=== PATIENT | female | born 1955 | race Caucasian/White ===

== ENCOUNTER 2017-06-13 12:14 | Emergency (ER) | payer BC ==
[2017-06-13 12:46] LABS: #Eosinphils 0.2 thou/uL (0.0-0.7); #Lymphocytes 0.9 thou/uL (1.20-3.40); #Monocytes 0.5 thou/uL (0.11-0.59); #Neutrophils 7.1 thou/uL (1.40-6.50); %Basophils 0.4 % (0.0-1.0); %Eosinophils 2.1 % (0.0-10.0); %Lymphocytes 10.7 % (21.0-51.0); %Monocytes 5.2 % (0.0-10.0); Hematocrit 45.9 % (36.0-47.0); Mean Platelet Volume 7.7 fL (7.4-10.4); Red Blood Cell (RBC) Count 5.51 mill/uL (4.20-5.40); White Blood Cell (WBC) Count 8.6 thou/uL (4.8-10.8)
[2017-06-13 13:04] LABS: ALT (SGPT) 78 U/L (8-55); AST (SGOT) 44 U/L (5-34); Alkaline Phosphatase 102 U/L (40-150); Anion Gap 14 mmol/L (10-20); BUN (Urea Nitrogen) 20 mg/dL (9.8-20.1); Bilirubin, Total 0.4 mg/dL (0.2-1.2); Calc. Creatinine Clearance 0 mL/min (70-130); Calcium 8.9 mg/dL (7.8-10.44); Carbon Dioxide 28 mmol/L (22-29); Chloride 103 mmol/L (98-107); Estimated GFR-MDRD 73; Globulin 3.4 g/dL (2.4-3.5); Lipase 8 U/L (8-78); Protein, Total 7.5 g/dL (6.0-8.3)
[2017-06-13 13:08] LABS: Bilirubin Negative (Negative); Blood, Urine Negative (Negative); Glucose, Urine (Dipstick) Negative (Negative); Ketone, Urine Negative (Negative); Nitrite Negative (Negative); Protein, Urine (Dipstick) Negative (Neg-Trace)
[2017-06-13] MEDS ORDERED: Ondansetron ODT 4 MG TAB ONE (14:49)
[2017-06-13] MEDS ORDERED: Ondansetron HCl/PF 4 MG/2 ML Vial ONE (14:52)
[2017-06-13] MEDS ORDERED: Lidocaine Viscous Sol 2% 15 ml UD Cup ONE (15:22)
[2017-06-13] MEDS ORDERED: Mag-Al 1200 mg/1200 mg/30 ML UDCUP ONE (15:22)
--- NOTE | 2017-06-13 16:18 | CT ---
CT ABDOMEN AND PELVIS WITH CONTRAST: 06/13/17 HISTORY: Generalized abdominal pain. COMPARISON: CT abdomen and pelvis 2012. FINDINGS: The lung bases are clear. No pericardial effusion. Prior cholecystectomy. There appears to be hepatic steatosis. The spleen, adrenal glands are unremar kable. No dilated loops of large or small bowel. 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 This can be seen in the 2012 examination also. No dilated loops of large or small bowel. The liver is enlarged. Mild diverticular disease sigmoid c olon without active inflammation. Posterior spinal fusion hardware at L5-S1. IMPRESSION: 1. Abnormal thickening of the origin of the appendix which is dilated although filled contrast. This is not concerning for acute appendicitis and would be more concerning for a mucosal based mass . Colonoscopic evaluation is recommended. 2. Hepatic steatosis with hepatomegaly. Code T
== END 2017-06-13 17:05 | disposition home or self-care (01) ==
LOC: ERS 12:14
DX: R10.9 Unspecified abdominal pain (principal); F41.9 Anxiety disorder, unspecified
CPT/HCPCS: 36415; 74177; 80053; 81003; 83690; 85025; 96374; J2405; Q0162

== ENCOUNTER 2019-04-11 10:03 | Outpatient (CLI) | payer BC ==
--- NOTE | 2019-04-11 11:09 | MRI ---
MRI Cervical spine without contrast: HISTORY: Cervical radiculopathy. Patient complains of left-sided arm and leg numbness for 2 months. COMPARISON: None FINDINGS: There are findings likely due to a yareli-cisterna magna. Axial imaging was not obtained through the [facility] for further evaluation. The craniocervical junction is unremarkable. No significant cord signal abnormality. Paravertebral soft tissues have a normal appearance and normal signal intensity. C1-2:No significant stenosis. C2-3: There is a small central disc protrusion which effaces the ventral subarachnoid space. Neural f oramina are patent. C3-4: There is loss of intervertebral disc height. A disc osteophyte complex is present. Mild facet d egenerative changes are present. Mild narrowing of the central spinal canal is present. The left neural foramen is patent, but there is mild right-sided neural foraminal narrowing. There is suggesti on of trace retrolisthesis of C3 on C4. C4-5: There is no disc bulge or disc herniation. The central spinal canal and neural foramina are pat ent. C5-6: There is loss of intervertebral disc height with mild endplate degenerative changes. Broad-base d disc osteophyte complex is present. There are mild facet degenerative changes noted. Mild narrowing of the central spinal canal is present with slight flattening of the anterior aspect of the spinal cord. Mild left and [id number] right-sided neural foraminal narrowing is present. C6-7: A mild disc osteophyte complex is present slightly effacing the ventral subarachnoid space. The neural foramina are patent. Tiny foci of increased T2-weighted signal intensity are seen in each neural foramen probably related to dilated nerve root sleeves. C7-T1: There is no disc bulge or disc herniation. The central spinal canal and neural foramina are pa tent. IMPRESSION: Mild degenerative changes in the cervical spine. No high-grade central canal stenosis or neural burt inal narrowing is present.
== END 2019-04-11 10:04 | disposition home or self-care (01) ==
LOC: MRI 10:03
PROVIDERS: ATTEND Neurological Surgery
DX: M47.22 Other spondylosis with radiculopathy, cervical region (principal)
CPT/HCPCS: 72141

== ENCOUNTER 2019-12-27 08:11 | Outpatient (CLI) | payer BC ==
--- NOTE | 2019-12-27 10:37 | RAD ---
CERVICAL SPINE 4 VIEWS: HISTORY: Cervical radiculopathy, numbness in face and both hands. FINDINGS: Multilevel disk-osteophytosis changes are noted. Minimal retrolisthesis of C3 on C4 and C5 on C6 wit h associated disk space narrowing. No prevertebral soft tissue swelling. No acute fracture or dislo cation of the visualized C-spine. IMPRESSION: Mild retrolisthesis of C3 on C4 and C5 on C6. No abnormal translation between flexion and extension. POS: [facility]
== END 2019-12-27 08:12 | disposition home or self-care (01) ==
LOC: BICRAD 08:11
PROVIDERS: ATTEND Neurological Surgery
DX: M54.12 Radiculopathy, cervical region (principal); M43.12 Spondylolisthesis, cervical region
CPT/HCPCS: 72050

== ENCOUNTER 2020-01-03 09:28 | Outpatient (CLI) | payer BC ==
--- NOTE | 2020-01-03 11:23 | RAD ---
LUMBAR SPINE 4 VIEWS:: Date: 01/03/2020 HISTORY: Spondylosis of lumbar region. COMPARISON: Lumbar spine radiograph from 2017. FINDINGS: Posterior spinal fusion hardware with transpedicular screws and interconnecting rods L5-S1. Similar a ppearance of the hardware from the 2017 exam. No evidence for hardware complication. No acute superim posed fracture or malalignment. Minimal narrowing of the L4-5 disc space. Mild narrowing of L3-4 disc space. Mild narrowing of L2-L4 interspinous space. Mild vascular calcifications. IMPRESSION: Intact surgical hardware. No acute osseous abnormality. POS: HOME
== END 2020-01-03 09:29 | disposition home or self-care (01) ==
LOC: BICRAD 09:28
PROVIDERS: ATTEND Neurological Surgery
DX: M47.816 Spondylosis without myelopathy or radiculopathy, lumbar region (principal); Z98.1 Arthrodesis status
CPT/HCPCS: 72110

== ENCOUNTER 2021-12-02 07:58 | Outpatient (CLI) | payer MEDICARE, OTHER | END 2021-12-02 07:59 | disposition home or self-care (01) | LOC: TBSIIMAG 07:58 | PROVIDERS: ATTEND Nurse Practitioner Family | DX: M47.27 Other spondylosis with radiculopathy, lumbosacral region (principal); M47.26 Other spondylosis with radiculopathy, lumbar region; Z98.890 Other specified postprocedural states | CPT/HCPCS: 72148 ==

== ENCOUNTER 2023-04-17 07:35 | Outpatient (CLI) | payer MEDICARE, OTHER ==
[2023-04-17] MEDS ORDERED: Sodium Chloride 0.9% 1,000 ML BAG ONE (08:18)
[2023-04-17] MEDS ORDERED: Lidocaine 1% PF 5 ML VIAL ONE (08:18)
[2023-04-17] MEDS ORDERED: Iopamidol 300 61% 100 ML VIAL FS ONE (08:18)
[2023-04-17] MEDS ORDERED: EPINEPHrine 1 MG/ML AMP ONE (08:18)
[2023-04-17] MEDS ORDERED: Iopamidol 370 76% 100 ML VIAL ONE (09:01)
== END 2023-04-17 07:36 | disposition home or self-care (01) ==
LOC: RAD 07:35
PROVIDERS: ATTEND Orthopaedic Surgery
DX: M24.021 Loose body in right elbow (principal); M19.021 Primary osteoarthritis, right elbow; M94.8X8 Other specified disorders of cartilage, other site
CPT/HCPCS: 24220; J0171; J7050; Q9967

== ENCOUNTER 2023-07-03 08:17 | Outpatient (CLI) | payer MEDICARE, OTHER ==
[2023-07-03 09:14] LABS: #Basophils 0.1 10x3/uL (0.0-0.2); #Eosinphils 0.3 10x3/uL (0.0-0.5); #Monocytes 0.4 10x3/uL (0.0-1.1); #Neutrophils 4.2 10x3/uL (1.5-8.4); %Basophils 0.9 % (0.0-2.0); %Eosinophils 4.4 % (0.0-6.0); %Lymphocytes 22.8 % (18.0-47.0); %Monocytes 5.8 % (0.0-10.0); %Neutrophils 65.8 % (40.0-75.0); Hematocrit 41.9 % (34.9-44.5); Hemoglobin 13.1 g/dL (12.0-15.5); Mean Corpuscular HGB CONC 31.3 g/dL (32.0-36.0); Mean Corpuscular Hemoglobin 25.8 pg (27.0-33.0); Mean Corpuscular Volume 82.5 fl (81.6-98.3); Platelet Count 224 10x3/uL (150-450); RBC Distribution Width 14.2 % (11.5-14.5); Red Blood Cell (RBC) Count 5.08 10x6/uL (3.90-5.03); White Blood Cell (WBC) Count 6.4 10x3/uL (3.5-10.5)
[2023-07-03 09:41] LABS: PTT 32.2 sec (22.0-33.0); Prothrombin Time 10.5 sec (9.5-12.1)
[2023-07-03 09:42] LABS: ALT (SGPT) 35 U/L (8-55); AST (SGOT) 18 U/L (5-34); Albumin 4.2 g/dL (3.4-4.8); Alkaline Phosphatase 69 U/L (40-110); Anion Gap 14 mmol/L (10-20); BUN (Urea Nitrogen) 16 mg/dL (9.8-20.1); Bilirubin, Direct 0.1 mg/dL (0.1-0.3); Bilirubin, Total 0.3 mg/dL (0.2-1.2); Calc. Creatinine Clearance 0 mL/min (70-130); Carbon Dioxide 26 mmol/L (23-31); Chloride 105 mmol/L (98-107); Estimated GFR 81; Glucose 147 mg/dL (80-115); Potassium 4.5 mmol/L (3.5-5.1); Protein, Total 6.8 g/dL (5.8-8.1); Sodium 140 mmol/L (136-145)
== END 2023-07-03 08:18 | disposition home or self-care (01) ==
LOC: LABBT 08:17
PROVIDERS: ATTEND Orthopaedic Surgery
DX: Z01.818 Encounter for other preprocedural examination (principal); M24.021 Loose body in right elbow
CPT/HCPCS: 80048; 80076; 85025; 85610; 85730; 93005; 93010

== ENCOUNTER 2023-07-06 09:54 | Day surgery (SDC) | payer MEDICARE, OTHER ==
[2023-07-03 08:49] VITALS: BMI 28.3
[2023-07-06] MEDS ORDERED: Midazolam HCl 2 mg/2 ml Vial ONE (12:13)
[2023-07-06] MEDS ORDERED: CEFAZOLIN 2 GM VIAL ONE (12:21)
[2023-07-06] MEDS ORDERED: Sodium Chloride 0.9% 100 ML ONE (12:21)
[2023-07-06] MEDS ORDERED: Lidocaine 1% (PF) 30 ML VIAL ONE (12:54)
[2023-07-06] MEDS ORDERED: EPINEPHrine 1 MG/ML VIAL ONE (12:54)
[2023-07-06] MEDS ORDERED: PROPOFOL 20 ML ONE (13:00)
[2023-07-06] MEDS ORDERED: Rocuronium Bromide 10 MG/ML (10ML VIAL) ONE ×2 (13:12→13:15)
[2023-07-06] MEDS ORDERED: fentaNYL PF 100 MCG/2 ML SYRINGE ONE ×2 (13:13→15:00)
[2023-07-06] MEDS ORDERED: Lidocaine 1% PF 5 ML VIAL ONE (13:15)
[2023-07-06] MEDS ORDERED: Dexamethasone 20 MG/5 ML VIAL ONE ×2 (13:15→13:41)
[2023-07-06] MEDS ORDERED: Ketorolac Tromethamine 30 MG/ML VIAL ONE ×2 (13:15→13:41)
[2023-07-06] MEDS ORDERED: Ondansetron PF 4 MG/2 ML Vial ONE ×2 (13:15→13:41)
[2023-07-06] MEDS ORDERED: PROPOFOL 200 MG/20 ML VIAL ONE (13:15)
[2023-07-06] MEDS ORDERED: SUGAMMADEX SODIUM 200 MG/2 ML VIAL ONE (14:18)
[2023-07-06] MEDS ORDERED: Dexamethasone 4 mg/ml Vial ONE (16:41)
== END 2023-07-06 17:06 | disposition home or self-care (01) ==
LOC: SDC 09:54
PROVIDERS: ATTEND Orthopaedic Surgery
PROC: 0RCL4ZZ Extirpation of Matter from Right Elbow Joint, Percutaneous Endoscopic Approach (ICD-10-PCS; principal; 2023-07-06)
PROC: 0RBL4ZZ Excision of Right Elbow Joint, Percutaneous Endoscopic Approach (ICD-10-PCS; 2023-07-06)
DX: M24.021 Loose body in right elbow (principal); M24.521 Contracture, right elbow; M19.022 Primary osteoarthritis, left elbow; E07.9 Disorder of thyroid, unspecified; K21.9 Gastro-esophageal reflux disease without esophagitis; F41.9 Anxiety disorder, unspecified; Z79.82 Long term (current) use of aspirin; Z79.890 Hormone replacement therapy; Z79.899 Other long term (current) drug therapy; Z88.2 Allergy status to sulfonamides; Z88.6 Allergy status to analgesic agent
CPT/HCPCS: 29834; 29838; J0171; J1100; J1885; J2001; J2250; J2405; J2704; J3490

== ENCOUNTER 2023-09-20 12:32 | Inpatient (IN) | payer MEDICARE, OTHER ==
[2023-09-20] MEDS ORDERED: Ondansetron PF 4 MG/2 ML Vial ONE (13:08)
[2023-09-20] MEDS ORDERED: Morphine 4 MG/ML VIAL ONE ×2 (13:08→14:18)
[2023-09-20] MEDS ORDERED: Ketorolac Tromethamine 30 MG (1 mL) VIAL ONE (14:19)
[2023-09-20] MEDS ORDERED: Glucagon 1 MG/ML KIT IM PRN (15:07)
[2023-09-20] MEDS ORDERED: Ondansetron ODT 4 MG TAB PO PRN (15:07)
[2023-09-20] MEDS ORDERED: Dextrose 50% Abboject 50 ML SYRINGE SLOW IVP PRN (15:07)
[2023-09-20] MEDS ORDERED: Ipratropium/Albuterol 3 ML NEB NEB PRN (15:07)
[2023-09-20] MEDS ORDERED: Dextrose 5% in Water 1,000 ML IV PRN (15:07)
[2023-09-20] MEDS ORDERED: Ondansetron PF 4 MG/2 ML Vial IVP PRN (15:07)
[2023-09-20] MEDS ORDERED: Boostrix 0.5 ML (Tdap) VIAL (>/=7 yrs of age) ONE (16:14)
[2023-09-20] MEDS ORDERED: Acetaminophen 325 MG TAB ONE (16:14)
[2023-09-20] MEDS: TETANUS, DIPHTHERIA TOX,ADULT (TDVAX) 0.5 ML VIAL IM ONE (16:21)
[2023-09-20] MEDS: Acetaminophen 325 MG TAB PO PRN (16:22)
[2023-09-20 18:05] VITALS: BMI 29.1
[2023-09-20] MEDS: HYDROcodone/Acetaminophen 5/325 mg Tablet PO PRN (18:17)
[2023-09-20] MEDS: Cyclobenzaprine 10 MG TAB PO PRN (23:45)
[2023-09-21] MEDS: traMADol HCl 50 MG TAB PO PRN (02:38)
[2023-09-21 04:42] LABS: #Basophils 0.1 thou/uL (0.0-0.2); #Eosinphils 0.2 thou/uL (0.0-0.7); #Monocytes 0.7 thou/uL (0.11-0.59); #Neutrophils 7.2 thou/uL (1.40-6.50); %Basophils 0.5 % (0.0-1.0); %Eosinophils 1.9 % (0.0-10.0); %Lymphocytes 17.3 % (21.0-51.0); %Monocytes 7.4 % (0.0-10.0); %Neutrophils 72.5 % (42.0-75.0); Hematocrit 38.5 % (36.0-47.0); Hemoglobin 11.6 g/dL (12.0-16.0); Mean Corpuscular HGB CONC 30.1 g/dL (32.0-36.0); Mean Corpuscular Hemoglobin 25.3 pg (27.0-31.0); Mean Corpuscular Volume 83.9 fl (78.0-98.0); Mean Platelet Volume 10.5 fL (7.4-10.4); Platelet Count 219 10x3/uL (130-400); RBC Distribution Width 13.7 % (11.5-14.5); Red Blood Cell (RBC) Count 4.59 mill/uL (4.20-5.40); White Blood Cell (WBC) Count 9.9 10x3/uL (4.8-10.8)
[2023-09-21 05:15] LABS: ALT (SGPT) 45 U/L (8-55); AST (SGOT) 24 U/L (5-34); Albumin 3.9 g/dL (3.4-4.8); Alkaline Phosphatase 70 U/L (40-110); Anion Gap 11 mmol/L (10-20); BUN (Urea Nitrogen) 20 mg/dL (9.8-20.1); Bilirubin, Total 0.3 mg/dL (0.2-1.2); Calc. Creatinine Clearance 83 mL/min (70-130); Calcium 8.7 mg/dL (7.8-10.44); Carbon Dioxide 29 mmol/L (23-31); Chloride 101 mmol/L (98-107); Estimated GFR 77; Globulin 2.6 g/dL (2.4-3.5); Glucose 142 mg/dL (80-115); Potassium 4.2 mmol/L (3.5-5.1); Protein, Total 6.5 g/dL (5.8-8.1); Sodium 137 mmol/L (136-145)
[2023-09-21] MEDS ORDERED: Fentanyl 100 MCG/2 ML VIAL SLOW IVP PRN (08:23)
[2023-09-21] MEDS: fentaNYL 50 mcg/mL 1 mL Vial SLOW IVP PRN (09:01)
[2023-09-21] MEDS: Morphine 2 MG/ML VIAL SLOW IVP PRN (23:11)
[2023-09-22] MEDS: diphenhydrAMINE 50 MG/ML VIAL IVP SCH (10:39)
[2023-09-22 12:46] VITALS: TEMP 97.6
[2023-09-22 13:06] VITALS: BP 133/86
== END 2023-09-22 14:30 | disposition home or self-care (01) | DRG 563 ==
LOC: ERS 12:32 → ERHOLD 15:14 → SURG B 16:52
PROVIDERS: ADMIT Surgery; ATTEND Surgery
PROC: 0PSCXZZ Reposition Right Humeral Head, External Approach (ICD-10-PCS; principal; 2023-09-21)
DX: S42.211A Unspecified displaced fracture of surgical neck of right humerus, initial encounter for closed fracture (principal); W18.30XA Fall on same level, unspecified, initial encounter; Z88.2 Allergy status to sulfonamides; Z88.8 Allergy status to other drugs, medicaments and biological substances; Z79.899 Other long term (current) drug therapy; E78.00 Pure hypercholesterolemia, unspecified; K21.9 Gastro-esophageal reflux disease without esophagitis; I10 Essential (primary) hypertension; E03.9 Hypothyroidism, unspecified; Z90.710 Acquired absence of both cervix and uterus; Z90.49 Acquired absence of other specified parts of digestive tract; F41.9 Anxiety disorder, unspecified; E78.5 Hyperlipidemia, unspecified; G43.909 Migraine, unspecified, not intractable, without status migrainosus; F32.A Depression, unspecified; Z79.82 Long term (current) use of aspirin
CPT/HCPCS: 36415; 80053; 85025; 90714; 90715; 96374; 96375; 96376; G0390; J1200; J1885; J2270; J2272; J2405; J3010

== ENCOUNTER 2023-09-27 11:50 | Day surgery (SDC) | payer MEDICARE, OTHER ==
[2023-09-26 11:03] VITALS: BMI 29.1
[2023-09-27] MEDS ORDERED: CEFAZOLIN 2 GM VIAL ONE (12:10)
[2023-09-27] MEDS ORDERED: Sodium Chloride 0.9% 100 ML ONE (12:10)
[2023-09-27] MEDS ORDERED: Ropivacaine 0.5% HCl/PF (150 MG/30 ML VIAL) ONE (12:26)
[2023-09-27] MEDS ORDERED: fentaNYL 50 mcg/mL 1 mL Vial ONE (12:26)
[2023-09-27] MEDS ORDERED: Famotidine/PF 20 mg/2ml Vial ONE (12:41)
[2023-09-27] MEDS ORDERED: PROPOFOL 20 ML ONE (13:15)
[2023-09-27] MEDS ORDERED: Ondansetron PF 4 MG/2 ML Vial ONE (13:17)
[2023-09-27] MEDS ORDERED: Lidocaine 1% PF 5 ML VIAL ONE (13:17)
[2023-09-27] MEDS ORDERED: Rocuronium Bromide 10 MG/ML (10ML VIAL) ONE (13:19)
[2023-09-27] MEDS ORDERED: SUGAMMADEX SODIUM 200 MG/2 ML VIAL ONE (14:38)
== END 2023-09-27 16:30 | disposition home or self-care (01) ==
LOC: SDC 11:50
PROVIDERS: ATTEND Orthopaedic Surgery
PROC: 0PS Upper Bones, Reposition (ICD-10-PCS; principal; 2023-09-27)
DX: S42.211A Unspecified displaced fracture of surgical neck of right humerus, initial encounter for closed fracture (principal); E03.9 Hypothyroidism, unspecified; K21.9 Gastro-esophageal reflux disease without esophagitis; G43.909 Migraine, unspecified, not intractable, without status migrainosus; M19.90 Unspecified osteoarthritis, unspecified site; F41.9 Anxiety disorder, unspecified; Z98.1 Arthrodesis status; Z79.890 Hormone replacement therapy; Z79.899 Other long term (current) drug therapy
CPT/HCPCS: 24516; 73060; J3010; C1713; C1776; C1889; J2405; J2704; J2795; J3490; S0028

== ENCOUNTER 2024-03-15 14:00 | Inpatient (IN) | payer MEDICARE, OTHER ==
[2024-03-15 08:45] VITALS: BMI 29.1
[2024-03-18] MEDS ORDERED: Sodium Chloride 0.9% 100 ML ONE ×2 (06:18→07:01)
[2024-03-18] MEDS ORDERED: CEFAZOLIN 2 GM VIAL ONE ×2 (06:18→07:01)
[2024-03-18] MEDS ORDERED: Vancomycin 1 GM VIAL ONE (06:52)
[2024-03-18] MEDS ORDERED: Thrombin 5000 UNITS/5 ML VIAL ONE (06:52)
[2024-03-18] MEDS ORDERED: Fentanyl 250 MCG/5 ML VIAL ONE (06:53)
[2024-03-18] MEDS ORDERED: PROPOFOL 20 ML ONE (06:53)
[2024-03-18] MEDS ORDERED: Lidocaine 1% PF 5 ML VIAL ONE (06:53)
[2024-03-18] MEDS ORDERED: Rocuronium Bromide 10 MG/ML (10ML VIAL) ONE (06:53)
[2024-03-18] MEDS ORDERED: Milk Of Magnesia 30 ML UDCUP PO PRN (06:56)
[2024-03-18] MEDS ORDERED: diphenhydrAMINE 50 MG/ML VIAL IVP PRN (06:56)
[2024-03-18] MEDS ORDERED: Mag-Al 1200 mg/1200 mg/30 ML UDCUP PO PRN (06:56)
[2024-03-18] MEDS ORDERED: Promethazine 25 MG TAB PO PRN (06:56)
[2024-03-18] MEDS ORDERED: Albuterol 2.5 MG (3 mL) NEB NEB PRN (07:03)
[2024-03-18] MEDS ORDERED: ALPRAZolam 0.25 MG TAB PO PRN (07:03)
[2024-03-18] MEDS ORDERED: traZODone HCl 50 MG TAB PO PRN (07:05)
[2024-03-18] MEDS ORDERED: Midazolam HCl 2 mg/2 ml Vial ONE (07:36)
[2024-03-18] MEDS ORDERED: PHENYLEPHRINE-NS 100 MCG/ML 10 ML SYRINGE ONE (08:39)
[2024-03-18] MEDS ORDERED: Dexamethasone 20 MG/5 ML VIAL ONE (08:39)
[2024-03-18] MEDS ORDERED: Ondansetron PF 4 MG/2 ML Vial ONE ×2 (08:39→14:33)
[2024-03-18] MEDS ORDERED: SUGAMMADEX SODIUM 200 MG/2 ML VIAL ONE (08:54)
[2024-03-18] MEDS ORDERED: Lidocaine 2% PF 5 ML VIAL ONE (09:03)
[2024-03-18] MEDS ORDERED: Labetalol HCl 100 MG/20 ML VIAL ONE (09:27)
[2024-03-18] MEDS ORDERED: HYDROcodone/Acetaminophen 10/325 mg Tablet ONE (10:04)
[2024-03-18] MEDS ORDERED: HYDROmorphone 0.5 MG/0.5 ML SYRINGE ONE ×2 (10:18→10:59)
[2024-03-18] MEDS ORDERED: fentaNYL 50 mcg/mL 1 mL Vial ONE (10:58)
[2024-03-18] MEDS: Acetaminophen/Codeine 30-300mg Tablet PO PRN ×2 (15:33→20:46)
[2024-03-18] MEDS: Cyclobenzaprine 10 MG TAB PO PRN (15:34)
[2024-03-18] MEDS: Sodium Chloride 0.9% 1,000 ML IV SCH (15:58)
[2024-03-18] MEDS: CEFAZOLIN 2 GM in Sodium Chloride 0.9% 100 ML IVPB SCH (15:58)
[2024-03-18] MEDS: Famotidine 20 MG TAB PO SCH (15:58)
[2024-03-18] MEDS: Lisinopril 2.5 MG TAB PO SCH (15:58)
[2024-03-18] MEDS: Pantoprazole DR 40 MG TAB PO SCH (15:59)
[2024-03-18] MEDS: Acetaminophen 325 MG TAB PO PRN (17:23)
[2024-03-18] MEDS: Morphine 2 MG/ML VIAL SLOW IVP PRN (17:24)
[2024-03-18] MEDS: Ondansetron PF 4 MG/2 ML Vial IVP PRN (17:37)
[2024-03-18] MEDS: SUMAtriptan Succinate 50 MG TAB PO SCH (18:44)
[2024-03-18] MEDS: Sertraline 100 MG TAB PO SCH (20:43)
[2024-03-19] MEDS: Levothyroxine Sodium 50 MCG TAB PO SCH (05:11)
[2024-03-19 09:37] VITALS: BP 132/77; TEMP 98.1
== END 2024-03-19 10:09 | disposition home or self-care (01) | DRG 460 ==
LOC: SURG A 03-18 05:48 → EDSTATUS 03-18 14:00 → T4-B 03-18 14:56
PROVIDERS: ADMIT Neurological Surgery; ATTEND Neurological Surgery
PROC: 0SG0071 Fusion of Lumbar Vertebral Joint with Autologous Tissue Substitute, Posterior Approach, Posterior Column, Open Approach (ICD-10-PCS; principal; 2024-03-18)
PROC: 0SG3071 Fusion of Lumbosacral Joint with Autologous Tissue Substitute, Posterior Approach, Posterior Column, Open Approach (ICD-10-PCS; 2024-03-18)
PROC: 01NB0ZZ Release Lumbar Nerve, Open Approach (ICD-10-PCS; 2024-03-18)
PROC: 01NR0ZZ Release Sacral Nerve, Open Approach (ICD-10-PCS; 2024-03-18)
PROC: 0SB20ZZ Excision of Lumbar Vertebral Disc, Open Approach (ICD-10-PCS; 2024-03-18)
PROC: 0SB40ZZ Excision of Lumbosacral Disc, Open Approach (ICD-10-PCS; 2024-03-18)
DX: M43.16 Spondylolisthesis, lumbar region (principal); M48.061 Spinal stenosis, lumbar region without neurogenic claudication; M47.816 Spondylosis without myelopathy or radiculopathy, lumbar region; I10 Essential (primary) hypertension; E78.5 Hyperlipidemia, unspecified; K21.9 Gastro-esophageal reflux disease without esophagitis; E03.9 Hypothyroidism, unspecified; Z88.2 Allergy status to sulfonamides; Z88.8 Allergy status to other drugs, medicaments and biological substances; Z01.818 Encounter for other preprocedural examination
CPT/HCPCS: 36416; 80048; 80076; 85027; 85610; 85730; 93005; 93010; C1713; C1889; J1100; J1170; J2001; J2250; J2272; J2405; J2704; J3010; J3370; J7030

== ENCOUNTER 2024-03-23 11:27 | Emergency (ER) | payer MEDICARE, OTHER ==
[2024-03-23 13:45] LABS: #Basophils 0.04 10x3/uL (0.0-0.2); %Basophils 0.5 % (0.0-1.0); %Eosinophils 3.8 % (0.0-10.0); %Monocytes 7.5 % (0.0-10.0); %Neutrophils 72.7 % (42.0-75.0); Hemoglobin 11.6 g/dL (12.0-16.0); Mean Corpuscular HGB CONC 30.5 g/dL (32.0-36.0); Mean Corpuscular Volume 81.9 fL (78.0-98.0); Mean Platelet Volume 10.1 fL (7.4-10.4); Platelet Count 261 10x3/uL (130-400); RBC Distribution Width 13.4 % (11.5-14.5); Red Blood Cell (RBC) Count 4.64 mill/uL (4.20-5.40)
[2024-03-23 13:58] LABS: ALT (SGPT) 26 U/L (8-55); AST (SGOT) 20 U/L (5-34); Albumin 3.3 g/dL (3.4-4.8); Alkaline Phosphatase 86 U/L (40-110); Anion Gap 15 mmol/L (10-20); BUN (Urea Nitrogen) 11 mg/dL (9.8-20.1); Bilirubin, Total 0.6 mg/dL (0.2-1.2); Calc. Creatinine Clearance 0 mL/min (70-130); Calcium 9.3 mg/dL (7.8-10.44); Carbon Dioxide 30 mmol/L (23-31); Chloride 100 mmol/L (98-107); Estimated GFR 96; Globulin 3.7 g/dL (2.4-3.5); Glucose 135 mg/dL (80-115); Potassium 4.1 mmol/L (3.5-5.1); Sodium 141 mmol/L (136-145)
[2024-03-23] MEDS ORDERED: fentaNYL 50 mcg/mL 1 mL Vial ONE (14:03)
[2024-03-23] MEDS ORDERED: Ketorolac Tromethamine 30 MG (1 mL) VIAL ONE (14:03)
[2024-03-23] MEDS ORDERED: LORazepam 2 MG/ML SYR.(CARPUJECT) ONE (14:03)
[2024-03-23] MEDS ORDERED: Ondansetron PF 4 MG/2 ML Vial ONE (14:03)
[2024-03-23 16:09] LABS: Bilirubin Negative (Negative); Blood, Urine Negative (Negative); CAUTI Indications for Culture Pelvic or flank pain; Clarity Clear (Clear); Glucose, Urine (Dipstick) Normal (Negative); Ketone, Urine Negative (Negative); Leukocyte Negative Leu/uL (Negative); Nitrite Negative (Negative); Protein, Urine (Dipstick) Negative (Neg-Trace); RBC/HPF 0-3 HPF (0-3); Specific Gravity, Urine 1.005 (1.002-1.036); Squamous Epithelial 0-3 HPF (0-3); Urobilinogen Normal mg/dL (Less than 2); WBC/HPF 0-3 HPF (0-3)
[2024-03-23 16:27] LABS: Bacteria/HPF 1+ HPF (None Seen); Urine Culture Reflex No No
== END 2024-03-23 15:57 | disposition home or self-care (01) ==
LOC: ERS 11:27
DX: G89.18 Other acute postprocedural pain (principal); K59.00 Constipation, unspecified; I10 Essential (primary) hypertension
CPT/HCPCS: 73502; 80053; 81001; 85025; J1885; J2405; J3010; 96374; 96375; J2060

== ENCOUNTER 2024-09-20 12:44 | Outpatient (CLI) | payer MEDICARE, OTHER ==
[2024-09-20] MEDS ORDERED: 0.9 % Sodium Chloride 20 ML, Lidocaine 1% PF 5 ML, Iopamidol 5 ML, EPINEPHrine 0.1 MG FS SCH (13:30)
[2024-09-20] MEDS ORDERED: Sodium Bicarbonate 2.5 MEQ/5 ML SDV ONE (14:18)
== END 2024-09-20 12:45 | disposition home or self-care (01) ==
LOC: RAD 12:44
PROVIDERS: ATTEND Orthopaedic Surgery
PROC: BP08YZZ Plain Radiography of Right Shoulder using Other Contrast (ICD-10-PCS; principal; 2024-09-20)
DX: S42.291A Other displaced fracture of upper end of right humerus, initial encounter for closed fracture (principal); M75.121 Complete rotator cuff tear or rupture of right shoulder, not specified as traumatic; Z98.890 Other specified postprocedural states; W17.89XA Other fall from one level to another, initial encounter
CPT/HCPCS: 23350; 73201; 77002; J0171; Q9967